=== PATIENT | female | born 1980 | race Caucasian/White ===

== ENCOUNTER 2020-06-20 14:48 | Outpatient (REF) | payer OTHER, SELFPAY ==
[2020-06-20 15:21] LABS: MANUAL DIFF FLAG NO
[2020-06-20 15:26] LABS: Basophils Percent Auto 0.4 % (0-2); Eosinophils Absolute Auto 0.2 X10*3/uL (0.0-0.4); Eosinophils Percent Auto 2.9 % (0-4); Hematocrit 39.5 % (37-47); Hemoglobin 13.6 g/dl (12.0-16.0); Imm Gran Abs Auto 0.01 X10*3/uL (0.00-0.03); Imm Gran Pct Auto 0.2 % (0.0-0.4); Lymphocytes Percent Auto 36.6 % (20-40); Mean Corpuscular HGB Conc 34.4 g/dl (31.0-35.0); Mean Corpuscular Hemoglobin 29.3 pg (27.0-33.0); Mean Corpuscular Volume 85.1 fL (80-98); Mean Platelet Volume 9.6 fL (9.4-12.3); Monocytes Absolute Auto 0.4 X10*3/uL (0.1-1.2); Monocytes Percent Auto 7.7 % (2-11); Neutrophils Absolute Auto 2.9 X10*3/uL (2.0-8.3); Neutrophils Percent Auto 52.2 % (45-73); Platelet Count 257 X10*3/uL (160-400); Red Blood Count 4.64 X10*6/uL (4.20-5.50); Red Cell Distribution Width 12.8 % (11.0-16.0); White Blood Count 5.6 X10*3/uL (4.8-10.8)
[2020-06-20 15:54] LABS: Alanine Aminotransferase 39 U/L (0-31); Albumin Level 4.4 g/dL (3.5-5.0); Alkaline Phosphatase 74 U/L (39-117); Anion Gap 12 (12-20); Aspartate Amino Transferase 25 U/L (5-31); Bilirubin Total 0.4 mg/dL (0.0-1.0); Blood Urea Nitrogen 11 mg/dL (9-16); C Reactive Protein 0.27 mg/dL (< or = 0.50); Calcium 9.2 mg/dL (8.4-10.2); Carbon Dioxide 27 mmol/L (22-29); Chloride 104 mmol/L (96-108); Estimated Glomerular Filt Rate > 60; Glucose Random 84 mg/dL (60-115); Sodium 139 mmol/L (135-145); Total Protein 7.1 g/dL (6.5-8.0)
[2020-06-20 16:15] LABS: Free T4 (Free Thyroxine) 0.93 ng/dL (0.71-1.85); Thyroid Stimulating Hormone 0.46 uIU/mL (0.32-4.0)
[2020-06-20 16:16] LABS: Erythrocyte Sedimentation Rate 9 MM/HR (0-20)
[2020-06-22 20:56] LABS: Transglutaminase Ab IgG 4 U/mL; Transglutaminase IgA 1 U/mL
[2020-06-27 19:02] LABS: Histamine Plasma <1.5 ng/mL (< OR = 1.8)
== END 2020-06-20 14:49 | disposition home or self-care (01) ==
LOC: HO.LAB 14:48
PROVIDERS: PCP Internal Medicine; Visit Provider Internal Medicine Gastroenterology
DX: R19.7 Diarrhea, unspecified (principal)
CPT/HCPCS: 36415; 80053; 83088; 83516; 83520; 84439; 84443; 85025; 85652; 86140

== ENCOUNTER 2020-06-21 09:18 | Outpatient (REF) | payer OTHER, SELFPAY ==
[2020-06-21 11:51] LABS: Alanine Aminotransferase 40 U/L (0-31); Anion Gap 10 (12-20); Aspartate Amino Transferase 26 U/L (5-31); Blood Urea Nitrogen 10 mg/dL (9-16); Calcium 9.1 mg/dL (8.4-10.2); Carbon Dioxide 26 mmol/L (22-29); Chloride 106 mmol/L (96-108); Cholesterol 206 mg/dL; Estimated Glomerular Filt Rate > 60; Glucose Fasting 95 mg/dL (60-99); HDL Cholesterol 56 mg/dL; LDL Cholesterol Calculated 119 mg/dl; Potassium 4.1 mmol/l (3.3-5.1); Sodium 138 mmol/L (135-145); Triglycerides 159 mg/dL
[2020-06-21 12:14] LABS: CDIFF Ag Negative (Negative); CDIFF Internal ctrl Dots and bkg OK (V); CDiff Toxin Negative (Negative)
[2020-06-21 13:47] LABS: Vitamin D 25-OH Total 23.4 ng/mL (>30)
[2020-06-21 13:53] LABS: Leukocytes Stool Qualitative NEGATIVE (NEGATIVE)
[2020-06-27 12:22] LABS: Fecal Fat Qualitative Normal (Normal)
[2020-06-28 17:07] LABS: Calprotectin, Fecal 6 mcg/g
[2020-06-28 23:22] LABS: Pancreatic Elastase-1 >500 mcg/g
== END 2020-06-21 09:19 | disposition home or self-care (01) ==
LOC: HO.HMGCLDS 09:18
PROVIDERS: PCP Internal Medicine; Visit Provider Internal Medicine Gastroenterology
DX: E66.3 Overweight (principal); Z00.01 Encounter for general adult medical examination with abnormal findings
CPT/HCPCS: 80048; 80061; 82306; 82656; 82705; 83993; 84450; 84460; 87015; 87207; 87272; 87324; 87449; 89055

== ENCOUNTER 2020-08-29 15:14 | Outpatient (REF) | payer OTHER, SELFPAY ==
--- NOTE | 2020-08-29 | MM_ITS ---
EXAMINATION: MM DIAGNOSTIC DIGITAL BREAST TOMOSYNTHESIS, RIGHT CLINICAL INFORMATION: Follow-up circumscribed nodule 12:00 right breast. The lifetime risk of breast cancer based on the Tyrer-Cuzick Model is 13%. COMPARISON: Mammography: 03/01/2020, targeted right breast ultrasound 03/07/2020 TECHNIQUE: Digital breast tomosynthesis is performed in both the craniocaudal and mediolateral oblique views along with computer-aided detection (CAD). Synthesized 2D images are generated from the tomosynthesis. FINDINGS: There are scattered areas of fibroglandular density (ACR BI-RADS breast composition Category b). Small nodule 12:00 right breast mid depth is decreased in size from prior mammography 03/01/2020 suggesting regressing cyst. There is no interval dominant mass or developing density or architectural abnormality. No abnormal calcifications. The axilla and skin contours are unremarkable. Results are provided to the patient at time of visit by the technologist. MM/MM tomosynthesis diagnostic RT IMPRESSION: Right nodule 12:00 position is decreased in size consistent with regressing cyst. ASSESSMENT: BI-RADS 2: Benign RECOMMENDATION: Routine annual mammography screening, due in 6 months. This patient's information was entered into a reminder system with a target due date for their next mammogram.
== END 2020-08-29 15:15 | disposition home or self-care (01) ==
LOC: HO.MAMMO 15:14
PROVIDERS: Visit Provider Internal Medicine
DX: N63.10 Unspecified lump in the right breast, unspecified quadrant (principal)
CPT/HCPCS: 77061; 77065

== ENCOUNTER 2021-04-09 13:40 | Day surgery (SDC) | payer OTHER, SELFPAY ==
--- NOTE | 2021-04-06 12:19 | P.CONAN_ITS ---
Documented by User: Manasa Tuttle NP 04/06/21 12:19 HPI - Anesthesia Eval Consult details Narrative: 41yo F for Upper Endoscopy and Colonoscopy PMFSH Active Problems Active Problems: All Active Problems (Updated 04/03/21 @ 14:56 by Anabell Hwang, AUGUSTO) Diarrhea (Acute) Past Medical History Medical History Anxiety GERD (gastroesophageal reflux disease) Surgical History Surgical History History of ankle surgery History of esophagogastroduodenoscopy (EGD) Social History Social History Advance Directives Information Provided: No Meds Allergies Allergy/AdvReac Type Severity Reaction Status Date / Time No Known Allergies Allergy Verified 04/03/21 14:45 Exam Exam Date and Time: April 06, 2021 1219 Height,Weight and Vital Signs: Height 5 ft 11 in Assessment and Plan Assessment Anesthesia Assessment: Chart Reviewed Documented by User: Kiersten Rice MD 04/09/21 14:37 [facility] Past Medical History Medical History Anxiety GERD (gastroesophageal reflux disease) Surgical History Surgical History History of ankle surgery History of esophagogastroduodenoscopy (EGD) History of Problems with Anesthesia: No Social History Social History Advance Directives Information Provided: No Meds Allergies Allergy/AdvReac Type Severity Reaction Status Date / Time No Known Allergies Allergy Verified 04/03/21 14:45 Exam Airway Mallampati Class: II TM Dist: >3cm Neck ROM: Full Loose/Missing/Broken Teeth: No Heart: RRR Lungs: CTA Assessment and Plan Assessment Anesthesia Assessment: Anesthesia Plan Discussed Final Anesthetic Review History of Problems with Anesthesia: No NPO: Yes ASA Class: II Final Preanesthetic Review: Meds/Allgs Chart Reviewed, Consent Obtained/Reviewed and Anes Risks/Benef Reviewed Patient Risk: Low Procedure Risk: Intermediate Anesthetic Plan Anesthetic Plan: MAC: Disposition: Standard PACU
[2021-04-09 13:49] VITALS: BP 147/104; PULSE 80; RESP 16; TEMP 36.4; O2SAT 96; BMI 30.1
[2021-04-09 14:00] LABS: UPreg QC Valid YES; Urine Pregnancy NEGATIVE (NEGATIVE)
[2021-04-09] MEDS: Lactated Ringers 1,000 ML 100 ML IVCONT (14:02)
--- NOTE | 2021-04-09 14:16 | MHC.SHP ---
Pre-Procedural Eval Section A Date of Service: 04/09/21 Section B Chief Complaint: diarrhea Relevant Family History (Specify if Yes): No Relevant Social History: None Present Medications: see Short Stay Collaborative assessment Medical History: Significant History (Anxiety GERD (gastroesophageal reflux disease)) History of Previous Operations: Relevant previous surgery/procedure and date(s) (History of ankle surgery History of esophagogastroduodenoscopy (EGD)) Allergies: Allergies Allergy/AdvReac Type Severity Reaction Status Date / Time No Known Allergies Allergy Verified 04/03/21 14:45 Review of Systems Sugical H&P ROS: Negative: Constitution, Cardiovascular, Respiratory, Neurological, Psychiatric, Hem-Onc, Allergic/Immunologic, Gastrointestinal, Genitourinary, Musculoskeletal, Integumentary, Endocrine and Eyes/Ears/Nose/Throat Exam Surgical H&P Exam: Normal: HEENT, Normal: Heart, Normal: Lungs, Normal: Extremities, Normal: Abdomen, Normal: Skin and Normal: Neurological Plan Diagnosis/Plan: Unchanged I have reviewed the history and physical and performed a pertinent physical examination on my patient. No changes have occurred unless specified.
--- NOTE | 2021-04-09 14:50 | PM.OP ---
Brief Operative Note Date of Service: 04/09/21 Pre-op diagnosis: diarrhea Post-op diagnosis: same Procedure: see op note Surgeon: Neelima Martins MD Anesthesia: MAC Was an Director Of Recreation Therapy used for this Procedure?: No Estimated blood loss (mL): 0 Condition: stable Disposition: PACU
--- NOTE | 2021-04-09 14:50 | W.PM.OPN ---
Operative Note Operative Note Date of Service: 04/09/21 Narrative: Operative Information Procedure Description: EGD, Colonoscopy FLEXIBLE TRANSORAL UPPER GASTROINTESTINAL ENDOSCOPY AND COLONOSCOPY PROCEDURE NOTE UPPER ENDOSCOPY Consent: Indications for the procedure and potential complications of bleeding, perforation, reaction to medications and missed diagnosis were discussed with the patient and informed consent was obtained. Instrument: Olympus GIF H 190 J mid size upper endoscope Monitoring: Vital signs and clinical assessment, continuous EKG monitoring, Pulse oximetry, Carbon Dioxide monitoring and blood pressure monitoring were done throughout the procedure. Procedure: The patient was placed in the left lateral decubitis position and pre-procedure medications were administered and a bite block was placed. The endoscope was inserted into the mouth and advanced under direct vision to the third part of duodenum. A careful inspection was made as the upper endoscope was withdrawn including a retroflexed examination of the proximal stomach; Findings and interventions are described below. Findings: Larynx:normal Esophagus: GE junction at 36 cm, diaphragm hiatus at 40 cm, normal mucosa with 4 cm hiatal hernia noted, bx taken from GEJ and random esophagus Stomach: Patchy erythema at pylorus. Biopsies were obtained. Grade 2 flap valve on retroflexed examination of the cardia. Duodenum: Normal bulb and descending duodenum, bx taken Intervention: Biopsies as noted above COLONOSCOPY Instrument: Olympus variable stiffness pediatric scope 190L Colonoscopy Monitoring: Vital signs and clinical assessment, continuous EKG monitoring, Pulse oximetry, Carbon Dioxide monitoring and blood pressure monitoring were done throughout the procedure. Colon withdrawal time was 15 minutes. Procedure: The patient was placed in the left lateral decubitis position and pre-procedure medications were administered. After a digital rectal examination of the ano-rectum, the video colonoscope was inserted into the rectum and advanced through the colon to the cecum/TI. The colonoscope was slowly withdrawn in a retrograde panoramic fashion and the colon mucosa was carefully examined including a retroflexed view of the rectum. Findings and interventions are described below. Procedure Difficulty: moderate Findings: Terminal Ileum-normal, bx taken random colon bx taken Cecum:normal Ascending Colon: normal Transverse Colon -normal Descending Colon:normal Sigmoid Colon: few diverticula seen Rectum: Retroflexion with moderate sized internal hemorrhoids, grade I Anorectum - normal Colon preparation: [place] Bowel Preparation Scale Right colon; 2 Transverse colon: 3 Left colon; 3 (0 = Unprepared colon segment with mucosa not seen due to solid stool that cannot be cleared. 1 = Portion of mucosa of the colon segment seen, but other areas of the colon segment not well seen due to staining, residual stool and/or opaque liquid. 2 = Minor amount of residual staining, small fragments of stool and/or opaque liquid, but mucosa of colon segment seen well. 3 = Entire mucosa of colon segment seen well with no residual staining, small fragments of stool or opaque liquid) Impression and Post Procedure Diagnosis: Endoscopy Findings: hiatal hernia gastritis Colonoscopy Findings: internal hemorrhoids diverticular disease Plan: Await Pathology results Repeat Colonoscopy in 10 years or earlier if clinically indicated High fiber diet leaflet avoid straining at stool, epsom salts and sitz bath, anusol supps or cream Above findings were reviewed with the patient and relevant handouts were provided if indicated.
[2021-04-09 15:21] VITALS: BP 133/85; PULSE 77; RESP 16; TEMP 36.2; O2SAT 98
[2021-04-09 15:35] VITALS: BP 133/91; PULSE 67; RESP 16; TEMP 36.2; O2SAT 97
== END 2021-04-09 15:53 | disposition home or self-care (01) ==
PROVIDERS: Nurse Practitioner; PCP Internal Medicine; Visit Provider Internal Medicine Gastroenterology
PROC: (CPT 45380; principal; 2021-04-09 15:20)
DX: R19.7 Diarrhea, unspecified (principal); K57.30 Diverticulosis of large intestine without perforation or abscess without bleeding; K64.0 First degree hemorrhoids; K29.50 Unspecified chronic gastritis without bleeding; R13.11 Dysphagia, oral phase; K21.9 Gastro-esophageal reflux disease without esophagitis; K44.9 Diaphragmatic hernia without obstruction or gangrene; Z79.899 Other long term (current) drug therapy
CPT/HCPCS: 45380; 43239; 81025; 88305; 88342; J3010

== ENCOUNTER 2021-04-24 08:09 | Outpatient (REF) | payer OTHER, SELFPAY | END 2021-04-24 08:10 | disposition home or self-care (01) | LOC: HO.XRAY 08:09 | PROVIDERS: PCP Internal Medicine; Visit Provider Obstetrics & Gynecology | DX: Z13.89 Encounter for screening for other disorder (principal) ==

== ENCOUNTER 2021-05-03 08:27 | Outpatient (REF) | payer OTHER, SELFPAY ==
--- NOTE | ~2021-05-03 | FL_ITS ---
EXAMINATION: FL BARIUM SWALLOW CLINICAL INFORMATION: Dysphagia. COMPARISON: None TECHNIQUE: Barium swallow examination is performed using fluoroscopic evaluation in addition to multiple fluoroscopic spot views. The patient is imaged both upright and prone and using both thick and thin sulfate along with effervescent granules. Fluoroscopy time: 2.3 minutes DAP: 26.095 Gycm2 Images: 56 FINDINGS: Following oral administration of thick barium and barium-coated turkey, there is normal propagation of bolus from the oral cavity through the pharynx, esophagus into stomach without any evidence of obstruction, narrowing or stricture. Patient has a gastric Lap-Band in the proximal stomach with a small hiatal hernia above the diaphragm. There is moderate gastroesophageal reflux seen more prominent in the supine and prone lying positions. The mucosal pattern of the esophagus is normal. FL/FL barium swallow IMPRESSION: Widely patent esophagus. Gastric Lap-Band in the proximal stomach with a small incarcerated hiatal hernia and moderate gastroesophageal reflux in supine and prone position.
== END 2021-05-03 08:28 | disposition home or self-care (01) ==
LOC: HO.XRAY 08:27
PROVIDERS: PCP Internal Medicine; Visit Provider Internal Medicine Gastroenterology
DX: R13.10 Dysphagia, unspecified (principal)
CPT/HCPCS: 74220

== ENCOUNTER → 2021-05-08 14:38 | Outpatient (BNVA) | payer OTHER, SELFPAY | PROVIDERS: PCP Internal Medicine; Visit Provider Internal Medicine Gastroenterology ==

== ENCOUNTER 2021-06-01 15:29 | Outpatient (REF) | payer OTHER, SELFPAY ==
--- NOTE | ~2021-06-01 | MM_ITS ---
EXAMINATION: MM SCREENING DIGITAL BREAST TOMOSYNTHESIS, BILATERAL CLINICAL INFORMATION: Screening. Asymptomatic. Remote history outside biopsy large left breast retroareolar mass 2008 (lactating adenoma (Nodular lactational hyperplasia), measurement 4.8 cm greatest dimension on outside ultrasound 2008. The lifetime risk of breast cancer based on the Tyrer-Cuzick Model is 13%. COMPARISON: Mammography: 08/29/2020, 03/01/2020 (baseline) bilateral targeted breast ultrasound 03/07/2020. TECHNIQUE: Digital breast tomosynthesis is performed in both the craniocaudal and mediolateral oblique views along with computer-aided detection (CAD). Synthesized 2D images are generated from the tomosynthesis. FINDINGS: There are scattered areas of fibroglandular density (ACR BI-RADS breast composition Category b). There is a large oval mass subareolar left breast similar in size and contour to prior exam 03/01/2020. Neither breast demonstrates interval new dominant mass or developing density or architectural abnormality. No abnormal calcifications. The axilla and skin contours are unremarkable. MM/MM tomosynthesis screening BI IMPRESSION: 1. No significant changes from prior exam 2019. 2. 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 ASSESSMENT: BI-RADS 2: Benign RECOMMENDATION: Routine annual mammography screening. This patient's information was entered into a reminder system with a target due date for their next mammogram.
== END 2021-06-01 15:30 | disposition home or self-care (01) ==
LOC: HO.MAMMO 15:29
PROVIDERS: Visit Provider Obstetrics & Gynecology
DX: Z12.31 Encounter for screening mammogram for malignant neoplasm of breast (principal)
CPT/HCPCS: 77063; 77067

== ENCOUNTER 2021-06-26 14:13 | Outpatient (REF) | payer OTHER, SELFPAY | END 2021-06-26 14:14 | disposition home or self-care (01) | LOC: HO.LAB 14:13 | PROVIDERS: PCP Internal Medicine; Visit Provider Internal Medicine Gastroenterology | DX: Z91.018 Allergy to other foods (principal) | CPT/HCPCS: 36415; 86003 ==

== ENCOUNTER 2021-07-18 10:58 | Day surgery (SDC) | payer OTHER, SELFPAY ==
[2021-07-12 10:59] VITALS: BMI 30.1
--- NOTE | 2021-07-17 10:39 | P.CONAN_ITS ---
Documented by User: Manasa Tuttle NP 07/17/21 10:39 HPI - Anesthesia Eval Consult details Narrative: 41yo F for Upper Endoscopy with Balloon Dilitation s/p EGD and [place] 03/2021 with MAC [facility] Active Problems Active Problems: All Active Problems (Updated 05/28/21 @ 18:26 by Neelima Martins MD) Diarrhea (Acute) Dysphagia (Acute) Food allergy (Acute) Past Medical History Medical History (Updated 07/18/21 @ 11:56 by Jacy Greenberg RN) Anxiety GERD (gastroesophageal reflux disease) HTN (hypertension) Hx of hiatal hernia Surgical History Surgical History History of ankle surgery History of esophagogastroduodenoscopy (EGD) History of Sim fundoplication Hx of colonoscopy History of Problems with Anesthesia: No Social History Social History Patient Tobacco Use Status: Tobacco use Unknown Advance Directives Information Provided: Yes Advance Directives on File: No Meds Allergies Allergy/AdvReac Type Severity Reaction Status Date / Time No Known Allergies Allergy Verified 07/18/21 11:22 Home Medications Medication Instructions Recorded Confirmed Last Taken Type bupropion HCl 100 mg tablet,12 hr 50 mg PO QAM tab 05/08/21 07/18/21 10:00 History sustained-release Exam Exam Date and Time: July 17, 2021 1039 Height,Weight and Vital Signs: Height 5 ft 11 in Weight 97.976 kg Assessment and Plan Assessment Anesthesia Assessment: Chart Reviewed Final Anesthetic Review History of Problems with Anesthesia: No Documented by User: Jessica Paez MD 07/18/21 12:34 PMF Past Medical History Medical History (Updated 07/18/21 @ 11:56 by Jacy Greenberg RN) Anxiety GERD (gastroesophageal reflux disease) HTN (hypertension) Hx of hiatal hernia Family History Family history of problems with anesthesia: No Surgical History Surgical History History of ankle surgery History of esophagogastroduodenoscopy (EGD) History of Sim fundoplication Hx of colonoscopy Social History Social History Patient Tobacco Use Status: Tobacco use Unknown Advance Directives Information Provided: Yes Advance Directives on File: No Meds Allergies Allergy/AdvReac Type Severity Reaction Status Date / Time No Known Allergies Allergy Verified 07/18/21 11:22 Home Medications Medication Instructions Recorded Confirmed Last Taken Type bupropion HCl 100 mg tablet,12 hr 50 mg PO QAM tab 05/08/21 07/18/21 10:00 History sustained-release Exam Airway Mallampati Class: II TM Dist: >3cm Neck ROM: Full Heart: rrr Lungs: cta Assessment and Plan Assessment Anesthesia Assessment: Anesthesia Plan Discussed and Chart Reviewed Final Anesthetic Review Family History of Problems with Anesthesia: No NPO: Yes ASA Class: II Final Preanesthetic Review: No Changes in Pt Med Stat, Meds/Allgs Chart Reviewed and Consent Obtained/Reviewed Patient Risk: Intermediate Procedure Risk: Intermediate Anesthetic Plan Anesthetic Plan: MAC: Disposition: Standard PACU
[2021-07-18 11:27] LABS: UPreg QC Valid YES
[2021-07-18 11:28] LABS: Urine Pregnancy NEGATIVE (NEGATIVE)
[2021-07-18 11:31] VITALS: BP 133/94; PULSE 85; RESP 16; TEMP 36.7; O2SAT 97
[2021-07-18] MEDS: Lactated Ringers 1,000 ML 100 ML IVCONT (11:45)
--- NOTE | 2021-07-18 12:12 | MHC.SHP ---
Pre-Procedural Eval Section A Date of Service: 07/18/21 Section B Chief Complaint: dysphagia Details of Present Illness: tight fundoplication wrap Relevant Family History (Specify if Yes): No Relevant Social History: None Present Medications: see Short Stay Collaborative assessment Medical History: Significant History (HTN, GERD) History of Previous Operations: Relevant previous surgery/procedure and date(s) (History of ankle surgery History of esophagogastroduodenoscopy (EGD) History of Sim fundoplication Hx of colonoscopy) Allergies: Allergies Allergy/AdvReac Type Severity Reaction Status Date / Time No Known Allergies Allergy Verified 07/18/21 11:22 Review of Systems Sugical H&P ROS: Negative: Constitution, Cardiovascular, Respiratory, Neurological, Psychiatric, Hem-Onc, Allergic/Immunologic, Gastrointestinal, Genitourinary, Musculoskeletal, Integumentary, Endocrine and Eyes/Ears/Nose/Throat Exam Surgical H&P Exam: Normal: HEENT, Normal: Heart, Normal: Lungs, Normal: Extremities, Normal: Abdomen, Normal: Skin and Normal: Neurological Plan Diagnosis/Plan: Unchanged I have reviewed the history and physical and performed a pertinent physical examination on my patient. No changes have occurred unless specified.
[2021-07-18] MEDS: Midazolam HCl/PF 2 MG/2 ML VIAL IVPUSH (12:40)
--- NOTE | 2021-07-18 13:25 | PM.OP ---
Brief Operative Note Date of Service: 07/18/21 Pre-op diagnosis: dysphagia, tight fundoplication Post-op diagnosis: same Procedure: see op note Surgeon: Neelima Martins MD Anesthesia: MAC Was an Supervisor Fur Dressing used for this Procedure?: No Estimated blood loss (mL): 0 Condition: stable Disposition: PACU
--- NOTE | 2021-07-18 13:26 | W.PM.OPN ---
Operative Note Operative Note Date of Service: 07/18/21 Narrative: Procedure Description: EGD FLEXIBLE TRANSORAL UPPER GASTROINTESTINAL ENDOSCOPY UPPER ENDOSCOPY Consent: Indications for the procedure and potential complications of bleeding, perforation, reaction to medications and missed diagnosis were discussed with the patient and informed consent was obtained. Instrument: Olympus GIF H 190 J mid size upper endoscope Monitoring: Vital signs and clinical assessment, continuous EKG monitoring, Pulse oximetry, Carbon Dioxide monitoring and blood pressure monitoring were done throughout the procedure. Procedure: The patient was placed in the left lateral decubitis position and pre-procedure medications were administered and a bite block was placed. The endoscope was inserted into the mouth and advanced under direct vision to the third part of duodenum. A careful inspection was made as the upper endoscope was withdrawn including a retroflexed examination of the proximal stomach; Findings and interventions are described below. Findings: Larynx:normal Esophagus: GE junction at 36? cm, diaphragm hiatus at 40 cm, normal mucosa with 4 cm hiatal hernia noted, balloon dilation mendes at lower esophagus to 17 mm with resistance felt, no tears noted, also UEs dilated to 15 mm. Stomach: Patchy erythema possible intestinal metaplasia at pylorus. Biopsies were obtained. fundoplication wrap was appreciated this time on the retroflexed examination of the cardia. Duodenum: Normal bulb and descending duodenum, Intervention: Biopsies as noted above and balloon dilation Impression/Findings: possible intestinal metaplasia suspected tight fundoplication wrap PLAN: allow PO as tolerated if having reflux sx can use PPI
--- NOTE | 2021-07-18 13:49 | PC.NURSE ---
to procedure room. report given to moira marcano.
[2021-07-18 14:21] VITALS: BP 122/80; PULSE 91; RESP 16; TEMP 36.9; O2SAT 99
[2021-07-18 14:36] VITALS: BP 123/83; PULSE 81; RESP 17; TEMP 36.9; O2SAT 100
== END 2021-07-18 15:25 | disposition home or self-care (01) ==
PROVIDERS: Nurse Practitioner; PCP Internal Medicine; Visit Provider Internal Medicine Gastroenterology
PROC: (CPT 43249; principal; 2021-07-18 12:10)
DX: R13.10 Dysphagia, unspecified (principal); K44.9 Diaphragmatic hernia without obstruction or gangrene; K21.9 Gastro-esophageal reflux disease without esophagitis
CPT/HCPCS: 43249; 43239; 81025; 88305; 88342; C1726; J2250

== ENCOUNTER → 2023-02-20 08:30 | Outpatient (BNV) | payer OTHER, SELFPAY | PROVIDERS: Visit Provider Radiology Diagnostic Radiology | DX: Z12.31 Encounter for screening mammogram for malignant neoplasm of breast (principal) | CPT/HCPCS: 77063; 77067 ==

== ENCOUNTER 2023-02-20 08:34 | Outpatient (REF) | payer OTHER, SELFPAY ==
--- NOTE | ~2023-02-20 | MM_ITS ---
EXAMINATION: MM SCREENING DIGITAL BREAST TOMOSYNTHESIS, BILATERAL CLINICAL INFORMATION: Screening. Asymptomatic. Patient has a known, biopsy-proven benign subareolar left breast mass. The lifetime risk of breast cancer based on the Tyrer-Cuzick Model is 11.2 2020.%. COMPARISON: Mammography: This study is compared with prior exams dating back to TECHNIQUE: Digital breast tomosynthesis is performed in both the craniocaudal and mediolateral oblique views along with computer-aided detection (CAD). Synthesized 2D images are generated from the tomosynthesis. FINDINGS: There are scattered areas of fibroglandular density (ACR BI-RADS breast composition Category b). There are no significant masses, abnormal calcifications, or other abnormalities. The left subareolar, benign mass is unchanged. MM/MM tomosynthesis screening BI IMPRESSION: No mammographic evidence of malignancy. ASSESSMENT: BI-RADS BI-RADS 2 - Benign Findings RECOMMENDATION: Routine annual mammography screening. 1 year F/U This examination should not preclude the clinical evaluation of a suspicious palpable abnormality. This patient's information was entered into a reminder system with a target due date for their next mammogram.
== END 2023-02-20 08:35 | disposition home or self-care (01) ==
LOC: HO.MAMMO 08:34
PROVIDERS: Visit Provider Obstetrics & Gynecology
DX: Z12.31 Encounter for screening mammogram for malignant neoplasm of breast (principal)
CPT/HCPCS: 77063; 77067

== ENCOUNTER → 2024-02-26 08:45 | Outpatient (BNV) | payer OTHER, SELFPAY | PROVIDERS: PCP Internal Medicine; Visit Provider Radiology Diagnostic Radiology | DX: Z12.31 Encounter for screening mammogram for malignant neoplasm of breast (principal) | CPT/HCPCS: 77063; 77067 ==

== ENCOUNTER 2024-02-26 08:50 | Outpatient (REF) | payer OTHER, SELFPAY ==
--- NOTE | ~2024-02-26 | MM_ITS ---
EXAMINATION: MM SCREENING DIGITAL BREAST TOMOSYNTHESIS, BILATERAL CLINICAL INFORMATION: Screening. Asymptomatic. COMPARISON: Mammography: This study is compared with prior exams dating back to 2019. TECHNIQUE: Digital breast tomosynthesis is performed in both the craniocaudal and mediolateral oblique views along with computer-aided detection (CAD). Synthesized 2D images are generated from the tomosynthesis. FINDINGS: There are scattered areas of fibroglandular density (ACR BI-RADS breast composition Category b). There are no suspicious masses, abnormal calcifications, or other abnormalities. There is a long-standing, unchanged, subareolar, biopsy-proven benign mass in the left breast. MM/MM tomosynthesis screening BI IMPRESSION: No mammographic evidence of malignancy. ASSESSMENT: BI-RADS BI-RADS 2 - Benign Findings RECOMMENDATION: Routine annual mammography screening. 1 year F/U This examination should not preclude the clinical evaluation of a suspicious palpable abnormality. This patient's information was entered into a reminder system with a target due date for their next mammogram.
== END 2024-02-26 08:51 | disposition home or self-care (01) ==
LOC: HO.MAMMO 08:50
PROVIDERS: PCP Internal Medicine; Visit Provider Internal Medicine
DX: Z12.31 Encounter for screening mammogram for malignant neoplasm of breast (principal)
CPT/HCPCS: 77063; 77067

== ENCOUNTER → 2025-03-29 14:00 | Outpatient (BNV) | payer OTHER, SELFPAY | PROVIDERS: PCP Internal Medicine; Visit Provider Internal Medicine | DX: Z12.31 Encounter for screening mammogram for malignant neoplasm of breast (principal) | CPT/HCPCS: 77063; 77067 ==

== ENCOUNTER 2025-03-29 14:05 | Outpatient (REF) | payer OTHER, SELFPAY ==
--- NOTE | ~2025-03-29 | MM_ITS ---
EXAMINATION: MM SCREENING DIGITAL BREAST TOMOSYNTHESIS, BILATERAL CLINICAL INFORMATION: Screening. Asymptomatic. COMPARISON: Mammography: Comparison is made with available priors TECHNIQUE: Digital breast mammography with tomosynthesis is performed in both the craniocaudal and mediolateral oblique views along with computer-aided detection (CAD). FINDINGS: There are scattered areas of fibroglandular density (ACR BI-RADS breast composition Category b). 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 There are no significant masses, abnormal calcifications, or other abnormalities. MM/MM tomosynthesis screening BI IMPRESSION: No mammographic evidence of malignancy. ASSESSMENT: BI-RADS BI-RADS 2 - Benign Findings RECOMMENDATION: Routine annual mammography screening. 1 year F/U This examination should not preclude the clinical evaluation of a suspicious palpable abnormality. This patient's information was entered into a reminder system with a target due date for their next mammogram. Electronically signed by: Conchita Villalobos DO 03/31/2025 11:24 AM EDT
--- OUTSIDE RECORDS SUMMARY | 2025-03-29 15:26 | XMS_ITS | Encounter Summary ---
Author Organization Located Within [facility] Address [address] [place] [phone] Phone Care Team Providers Care Nut Roaster Name Role Phone AlexNeymarJosi DO Primary Car e Provider Reason for Referral * (Emergency) - Closed Specialty Diagnoses / Procedures Referred By Rock brown Referred To Contact Radiology Diagnoses Right ankle swelling Procedures US Lower Extremity Veins Duplex (Left) US Lower Extremity Veins Duplex (Right) US Lower Extremity Veins Duplex (Right) Tia Russ PA-C Phone: tel: fax: [email or web address] Referral ID Status Reason Start Date Expiration Date Visits Re quested Visits Authorized [id number] Closed 06/04/2023 06/03/2024 1 1 Encounter Details Date Type Department Care Team (Late st Contact Info) Description 06/04/2023 Ancillary Orders [facility] - Orthopedics - Jalen [address] [place] [address] [place] [address] Tia Russ PA-C [address] [place] [address] Department [place] [address] [email or web address] Right ankle swelling Social History Tobacco Use Types Packs/Day Years Used Date Smoking Tobacco: Never Smokeless Tobacco: Never Alcohol Use Standard Drinks/Week Comments Yes 2 (1 standard drink = 0.6 oz pure alcohol) 1-2 glasses wine a week at most; some weeks nothing Education Answer Date Recorded Are you interested in more education? Not on shilpa e 12/14/2022 Are you concerned about learning? Not on file 12/14/2022 No 12/14/2022 No 12/14/2022 Digital Access Answer Date Recorded No 01/05/2023 No 01/05/2023 Reliable internet access at home? Not on file 01/05/2023 Device with a working camera? Not on file Comments No Sex and Gender Information Value Date Recorded Sex Assigned at Not on file Legal Sex Female 5:36 PM EST Gender Identity Not on file Sexual Orientation Not on file documented as of this encounter Plan of Treatment Not on file documented as of this encounter Results * US Lower Extremity Veins Duplex (Left) (06/04/2023 3:27 PM EDT) Anatomical Region Laterality Modality Hip Left, Thigh Left, Knee L eft, Leg Left, Ankle Left, Foot Left Ultrasound 06/04/2023 3:27 PM EDT Impressions 06/04/2023 5:01 PM EDT 1. No deep vein thrombosis from the knee to the groin on the left or in the left calf. Narrative 06/04/2023 5:01 PM EDT US LOWER EXTREMITY VEINS DUPLEX (LEFT) TECHNIQUE: Lower extremity venous ultrasound with color and spectral Doppler. COMPARISON: None FINDINGS: Exam Quality: Technically adequate exam demonstrates: Left lower extremity Common femoral vein: Normal compressibility and flow characteristics. Femoral vein: Normal compressibility and flow characteristics. Proximal profunda femoral vein: Normal compressibility. Popliteal vein: Normal compressibility and flow characteristics. Posterior tibial veins: Normal compressibility. Peroneal veins: Normal compressibility. Gastrocnemius veins: Normal compressibility. Great saphenous vein: Normal compressibility at the saphenofemoral junction. Right lower extremity Right Common femoral vein: Normal compressibility and flow characteristics. Procedure Note Nicolas Jensen MD - 06/04/2023 US LOWER EXTREMITY VEINS DUPLEX (LEFT) TECHNIQUE: Lower extremity venous ultrasound with color and spectralDoppler. COMPARISON: None FINDINGS: Exam Quality: Technically adequate exam demonstrates: Left lower extremity Common femoral vein: Normal compressibility and flow characteristics. Femoral vein: Normal compressibility and flow characteristics. Proximal profunda femoral vein: Normal compressibility. Popliteal vein: Normal compressibility and flow characteristics. Posterior tibial veins: Normal compressibility. Peroneal veins: Normal compressibility. Gastrocnemius veins: Normal compressibility. Great saphenous vein: Normal compressibility at the saphenofemoraljunction. Right lower extremity Right Common femoral vein: Normal compressibility and flowcharacteristics. IMPRESSION: 1. No deep vein thrombosis from the knee to the groin on the left or inthe left calf. us Tia Russ PA-C CV US VASCULAR Fi nal Result documented in this encounter Visit Diagnoses Diagnosis Right ankle swelling Effusion of ankle and foot joint Right ankle swelling Effusion of ankle and foot joint documented in this encounter Care Teams Nut Roaster Relationship Specialty Start Date End Date Josi Chris DO PCP - General Internal Medicine 06/04/23 documented as of this encounter Additional Source Comments The information contained in this document represents components of the legal health record. It is not the complete legal health record.Located Within [facility]
--- OUTSIDE RECORDS SUMMARY | 2025-03-29 15:26 | XMS_ITS | Patient Health Record ---
Author Organization [facility] Address [address] [facility] [place] [address] Care Team Providers Care Payable Representative Name Role Phone Josi Chris Primary Care Provid er Unavailable Freida Giuseppe Unavailable [phone] Allergies No Known Allergies Reason For Referral No Information Medications Medication SIG (Take, Route, Fr equency, Duration) Notes Start Date End Date Status Lexapro 10 MG 1 tablet Orally Once a day; Duration: 30 day(s) Active Ciclopirox 0.77 % 1 application to aff ected area Externally Twice a day; Duration: 365 days Active Social History Tobacco Use: Social History Observation Description Date Details (start date - stop date) Never Smoker NA - NA Tobacco Use/Smoking Question Answer Notes Are you a: nonsmoker Alcohol Screen Question Answer Notes Did you have a drink containing alcohol in the p ast year? No Points 0 Interpretation Negative Tobacco use other than smoking: Question Answer Notes Are you an other tobacco user? No Problems Problem Type SNOMED Code ICD Code Onset Dates Problem Status W/U Status Risk Notes Problem Tinea unguium (998669254) Tinea unguium (B35.1) Active confirmed Plan Of Treatment No Information Insurance Providers Payer Name Payer Address Payer Phone Subscriber Number Group Number Insured Name Patient Relationship to Insured Coverage Start Date Coverage End Date [employer] [address] [address] [place] [address] [phone] [id number] Hailee Lino Self - patient is the insured Medical (General) History Medical History History ICD Code Back,Hip,and Knee pain Broken bones Cataracts Chicken pox Miatal Hernia Retinal Detachments Surgical History Surgery Date(Month/Year) vitrectomy 2011 Torn Ligament 2016 Hiatal Hernia 2020
--- OUTSIDE RECORDS SUMMARY | 2025-03-29 15:26 | XMS_ITS | Patient Health Record ---
Author Organization [facility] Address [address] [address] Care Team Providers Care Hand Winder Name Role Phone Xiomara Chris Primary Care Provi fatoumata Unavailable JARAD SILVA Unavailable [phone] Allergies No Known Allergies Reason For Referral No Information Medications Medication SIG (Take, Route, Frequency, Duration) Notes Start Date End Date Status Mometasone Furoate 0.1 % 1 application E xternally Once a day; Duration: 30 days 11/11/2024 Active LORazepam 0.5 MG 1 tablet at bedtime as needed Orally Once a day Active Olmesartan Medoxomil 40 MG 1 tablet Oral ly Once a day Active hydroCHLOROthiazide 25 MG 1 tablet in th e morning Orally Once a day Active Proferrin ES 12 MG 1 tablet Orally Once a day Active Cortisol Carpet Sewer - as directed Orally Active Sertraline HCl 50 MG 1 tablet Orally Onc e a day Active Vital Signs Height 5ft 11in in 10/28/2024 Weight 205.7 lbs 10/28/2024 BMI 28.69 kg/m2 10/28/2024 Encounters Encounter Location Date Provider Diagnosis [facility] [address] [address] 10/28/2024 JARAD SILVA Nail dystrophy L60.3 and Onycholysis of toenail L60.1 [facility] [address] [address] 11/11/2024 JARAD SILVA Assessments Encounter Date Diagnosis (ICD Code) Assessment Notes Treatment Notes Treatment Clinical Notes Section Notes 10/28/2024 Nail dystrophy (ICD-10 - L60.3) 10/28/2024 Onycholysis of toenail (ICD-10 - L60.1) Patient was seen and examined, history reviewed. Educated the patient on fungal toenail infections and the difficulty of treating them. Treatment options include topical medications and oral medications. Patient was educated that trauma to the nail bed can also cause a fungal like appearance to the nail, however there are no treatment option to normalize the nail plate in this instance. We also discussed how inflammatory issues, vitamin deficiencies, vascular issues and medications can change the nail plate as well. Patient understood. Advised patient that it can take 9-12 months for the toenail(s) to improve with treatment, and that recurrence is common. Oral medications were discussed. All risks of taking oral antifungals were reviewed which included liver toxicity and failure, along with GI upset, rash, headache/dizzine ss, and unusual taste/loss of taste. Patient advised to watch for nausea, vomiting, abdominal pain, loose stools, and jaundice while on medication. If any symptoms do occur, patient should stop taking the medication immediately and contact the office. Baseline hepatic function tests are monitored when taking oral antifungal medications. Topical antifungals were discussed with the patient as well. Advised that these need to be used daily to the affected nails. They are less effective in eradicating the fungal infection than the oral medication, but have minimal side effects. This treatment should be done consistently over a 48 week period. I took samples of the left great toenail and the left 4th toenail today with sterile nail nippers. These were sent [facility] to [facility] for further testing. I will contact her once I have the results so we can establlish a treatment plan and follow up. I encouraged her to call in the meantime with any questions or concerns. Plan Of Treatment No Information Insurance Providers Payer Name Payer Address Payer Phone Subscriber Number Group Number Insured Name Patient Relationship to Insured Coverage Start Date Coverage End Date [facility] [address] [address] [place] [phone] [id number] Hailee Lino Self - patient is the insured Medical (General) History Medical History History ICD Code anxiety COVID-19 vaccinated Cyst in breast HTN Iron deficiency Surgical History Surgery Date(Month/Year) Virtrectomy sclearla buckle 2010 hernia 2020 right ankle surgery 2013
== END 2025-03-29 14:06 | disposition home or self-care (01) ==
LOC: HO.MAMMO 14:05
PROVIDERS: PCP Internal Medicine; Visit Provider Internal Medicine
DX: Z12.31 Encounter for screening mammogram for malignant neoplasm of breast (principal)
CPT/HCPCS: 77063; 77067